=== PATIENT | female | born 2005 | race Asian ===

== ENCOUNTER 2023-01-17 15:47 | Outpatient (CLI) | payer MEDICAID, SELFPAY | END 2023-01-17 15:48 | disposition home or self-care (01) | PROVIDERS: Visit Provider Family Medicine | DX: Z00.00 Encounter for general adult medical examination without abnormal findings (principal); Z13.6 Encounter for screening for cardiovascular disorders | CPT/HCPCS: 80048; 80061 ==

== ENCOUNTER 2023-06-24 13:00 | Outpatient (CLI) | payer MEDICAID, SELFPAY | END 2023-06-24 13:01 | disposition home or self-care (01) | LOC: NFLDREF 13:01 | PROVIDERS: PCP Family Medicine; Visit Provider Registered Nurse | DX: R35.0 Frequency of micturition (principal) | CPT/HCPCS: 87086 ==

== ENCOUNTER 2024-01-02 11:31 | Outpatient (CLI) | payer MEDICAID, SELFPAY ==
[2024-01-02 14:25] LABS: Bacterial Vaginosis* POSITIVE (Negative); Candida glab/krus NOT DETECTED (No Detected); Candida species NOT DETECTED (No Detected); Trichomonas vaginalis NOT DETECTED (No Detected)
== END 2024-01-02 11:32 | disposition home or self-care (01) ==
LOC: NFLDREF 11:31
PROVIDERS: PCP Family Medicine; Visit Provider Obstetrics & Gynecology
DX: N89.8 Other specified noninflammatory disorders of vagina (principal)
CPT/HCPCS: 81513; 87481; 87661

== ENCOUNTER 2024-01-28 13:53 | Outpatient (CLI) | payer MEDICAID, SELFPAY ==
[2024-01-28 17:06] LABS: Bacterial Vaginosis* POSITIVE (Negative); Candida glab/krus NOT DETECTED (No Detected); Candida species NOT DETECTED (No Detected); Trichomonas vaginalis NOT DETECTED (No Detected)
== END 2024-01-28 13:54 | disposition home or self-care (01) ==
LOC: NFLDREF 13:53
PROVIDERS: PCP Family Medicine; Visit Provider Advanced Practice Midwife
DX: N89.8 Other specified noninflammatory disorders of vagina (principal)
CPT/HCPCS: 81513; 87481; 87661